=== PATIENT | female | born 1985 | race Caucasian/White ===

== ENCOUNTER 2017-03-08 09:27 | Emergency (ER) | payer SELFPAY ==
[2017-03-08 10:23] LABS: Basophils % (Auto) 0.8 % (0.0-1.8); Eosinophils % (Auto) 4.3 % (0.0-4.3); Hematocrit 33.1 % (30.3-42.9); Hemoglobin 10.2 gm/dl (10.1-14.3); Mean Corpuscular HGB Conc 31 % (30-34); Mean Corpuscular Hemoglobin 25 pg (28-32); Mean Corpuscular Volume 81 fl (79-97); Platelet Count 231 K/mm3 (140-440); White Blood Count 4.4 K/mm3 (4.5-11.0)
[2017-03-08 10:28] LABS: Alanine Aminotransferase 6 units/L (7-56); Albumin 3.8 g/dL (3.9-5); Albumin/Globulin Ratio 1.2 %; Alkaline Phosphatase 54 units/L (35-129); Anion Gap 16 mmol/L; BUN/Creatinine Ratio 18.33; Bilirubin,Total < 0.20 mg/dL (0.1-1.2); Blood Urea Nitrogen 11 mg/dL (7-17); Calcium 8.3 mg/dL (8.4-10.2); Carbon Dioxide 25 mmol/L (22-30); Chloride 105.9 mmol/L (98-107); Glucose 66 mg/dL (65-100); Lipase 47 units/L (13-60); Potassium 3.7 mmol/L (3.6-5.0); Sodium 143 mmol/L (137-145); Total Protein 6.9 g/dL (6.3-8.2)
--- NOTE | 2017-03-08 10:54 | Emergency Department Report ---
HPI - General Chief Complaint: Urogenital-Female Time Seen by Provider: 03/08/17 10:43 - HPI HPI: Room 4 The patient is a 31-year-old female presenting with a chief complaint of dysuria. The patient states since 02/25/2017 dysuria, hematuria and urinary frequency. Patient denies abdominal pain. Patient denies vaginal discharge. Patient denies nausea vomiting or fever. The patient states her cycle came on approximately 10 days too early Location: Genitourinary Duration: Constant since 02/25/2017 Quality: Pressure/tingling Severity: Mild Modifying factors: [see above] Context: [see above] Mode of transportation: Unknown ED Past Medical Hx - Past Medical History Previous Medical History?: Yes Hx Heart Attack/AMI: Yes Additional medical history: Lupus - Surgical History Past Surgical History?: No - Family History Family history: no significant - Social History Smoking Status: Never Smoker Substance Use Type: None (denies illicit drug use), Alcohol (occasional) - Medications Home Medications: Home Medications Medication Instructions Recorded Confirmed Last Taken Type Phenazopyridine [Pyridium] 200 mg PO TID #6 tab 03/08/17 Unknown Rx Sulfamethoxazole/Trimethoprim 1 each PO BID #14 tablet 03/08/17 Unknown Rx [Bactrim DS TAB] ED Review of Systems ROS: Stated complaint: LOWER BACK PAIN/FREQUENT URINATION Other details as noted in HPI Comment: All other systems reviewed and negative Constitutional: denies: chills, fever Eyes: denies: eye pain, eye discharge, vision change ENT: denies: ear pain, throat pain Respiratory: denies: cough, shortness of breath, wheezing Cardiovascular: denies: chest pain, palpitations Endocrine: no symptoms reported Gastrointestinal: denies: abdominal pain, nausea, vomiting Genitourinary: urgency, dysuria, frequency, hematuria, abnormal menses. denies : discharge Musculoskeletal: denies: back pain, joint swelling, arthralgia Skin: denies: rash, lesions Neurological: denies: headache, weakness, paresthesias Psychiatric: denies: anxiety, depression Hematological/Lymphatic: denies: easy bleeding, easy bruising Physical Exam - Physical Exam Vital Signs: Vital Signs 03/08/17 09:43 Temperature 98.8 F Pulse Rate 75 Respiratory 18 Rate Blood Pressure 141/88 O2 Sat by Pulse 100 Oximetry Physical Exam: GENERAL: The patient is well-developed well-nourished female lying on stretcher not appearing to be in acute distress. [] HEENT: Normocephalic. Atraumatic. Trachea midline NECK: Supple. No meningitic signs are noted. There is no adenopathy noted. CHEST/LUNGS: Clear to auscultation. There is no respiratory distress noted. HEART/CARDIOVASCULAR: Regular. There is no tachycardia. There is no gallop rub or murmur. ABDOMEN: Abdomen is soft, nontender. Patient has normal bowel sounds. There is no abdominal distention. SKIN: There is no rash. There is no edema. There is no diaphoresis. NEURO: The patient is awake, alert, and oriented. The patient is cooperative. The patient has normal speech MUSCULOSKELETAL: There is no CVA tenderness. There is no evidence of acute injury. ED Course Vital Signs 03/08/17 09:43 Temperature 98.8 F Pulse Rate 75 Respiratory 18 Rate Blood Pressure 141/88 O2 Sat by Pulse 100 Oximetry ED Medical Decision Making - Lab Data Result diagrams: 03/08/17 10:01 03/08/17 10:01 Laboratory Tests 03/08/17 03/08/17 03/08/17 10:01 10:01 Unknown WBC 4.4 L RBC 4.10 Hgb 10.2 Hct 33.1 MCV 81 MCH 25 L MCHC 31 RDW 15.0 Plt Count 231 Lymph % (Auto) 30.9 [place] % (Auto) 11.2 H Eos % (Auto) 4.3 Baso % (Auto) 0.8 Lymph # 1.3 Hyde # 0.5 Eos # 0.2 Baso # 0.0 Seg Neutrophils % 52.8 Seg Neutrophils # 2.3 Sodium 143 Potassium 3.7 Chloride 105.9 Carbon Dioxide 25 Anion Gap 16 BUN 11 Creatinine 0.6 L Estimated GFR > 60 BUN/Creatinine Ratio 18.33 Glucose 66 Calcium 8.3 L Total Bilirubin < 0.20 AST 11 ALT 6 L Alkaline Phosphatase 54 Total Protein 6.9 Albumin 3.8 L Albumin/Globulin Ratio 1.2 Lipase 47 Urine Color Yellow Urine Turbidity Clear Urine pH 7.0 Ur Specific [place] 1.016 Urine Protein <15 mg/dl Urine Glucose (UA) Neg Urine Ketones Neg Urine Blood Sm Urine Nitrite Neg Urine Bilirubin Neg Urine Urobilinogen 2.0 Ur Leukocyte Esterase Sm Urine WBC (Auto) 19.0 H Urine RBC (Auto) 8.0 U Epithel Cells (Auto) 1.0 Urine Bacteria (Auto) 1+ Hyaline Casts 1 Urine HCG, Qual Negative - Differential Diagnosis UTI Critical care attestation.: If time is entered above; I have spent that time in minutes in the direct care of this critically ill patient, excluding procedure time. ED Disposition Clinical Impression: UTI (urinary tract infection) Disposition: TO HOME OR SELFCARE Is pt being admited?: No Does the pt Need Aspirin: No Condition: Stable Instructions: Urinary Tract Infection in Women (ED), Phenazopyridine (By mouth) Additional Instructions: Return to the emergency department immediately should you develop worsening symptoms, fever, inability to tolerate food or liquid or any other concerns. Prescriptions: Phenazopyridine [Pyridium] 200 mg PO TID #6 tab Sulfamethoxazole/Trimethoprim [Bactrim DS TAB] 1 each PO BID #14 tablet Referrals: PRIMARY CARE, [Primary Care Provider] - 3-5 Days JERE BRICEÑO MD [Staff Physician] - 3-5 Days (Dr. Briceño is an PSYCH COORDINATOR. Please follow up with him if he do not already have a wireless manager) Time of Disposition: 12:03
[2017-03-08 11:19] LABS: Bacteria,Urine 1+ /HPF (Negative); Bilirubin,Urine NEG (Negative); Blood,Urine SM (Negative); Ketones,Urine NEG (Negative); Leukocyte Esterase,Urine SM (Negative); Nitrite,Urine NEG (Negative); Protein,Urine <15 mg/dL mg/dL (Negative)
[2017-03-08 12:04] VITALS: BP 138/90
== END 2017-03-08 12:33 | disposition home or self-care (01) ==
LOC: ED 09:27
DX: N39.0 Urinary tract infection, site not specified (principal); I50.9 Heart failure, unspecified
CPT/HCPCS: 36415; 80053; 81001; 81025; 83690; 85025; 99283

== ENCOUNTER 2017-06-08 22:56 | Emergency (ER) | payer SELFPAY | END 2017-06-09 04:30 | disposition left against medical advice (07) | LOC: ED 22:56 | DX: M54.9 Dorsalgia, unspecified (principal); Z53.21 Procedure and treatment not carried out due to patient leaving prior to being seen by health care provider ==

== ENCOUNTER 2017-06-09 11:53 | Emergency (ER) | payer SELFPAY ==
[2017-06-09 12:03] VITALS: BP 134/67
[2017-06-09 12:44] LABS: Bilirubin,Urine NEG (Negative); Blood,Urine NEG (Negative); Ketones,Urine NEG (Negative); Leukocyte Esterase,Urine NEG (Negative); Nitrite,Urine NEG (Negative); Urobilinogen,Urine < 2.0 mg/dL (<2.0)
--- NOTE | 2017-06-09 13:14 | Emergency Department Report ---
ED Back Pain/Injury HPI - General Chief Complaint: Back Pain/Injury Stated Complaint: BACK AND RIGHT LEG PAIN Source: patient Limitations: No Limitations - History of Present Illness Initial Comments: 31 y/o F with a pmhx of lupus and CO and currently on Hydroxycholoquine, Plavix , Plaquenil, and lipitor presents with low back pain (no trauma) that radiates to her crease of her right thigh. Pt states that she has also had some abdominal pressure/cramps, some frequency, and urgency. Pt states that the pain started about 1 week ago, she states that she is atheletic and states that she does squats that increase the pain. She denies any radiation of the pain down her leg, no bowel/bladder incontinces, no saddle anesthsia, no known trauma to the site. Pt reports to 7/10 in severity. Pt states that she recently had unrpotected sex with a partner who she is unsure if he had any STD at this time. pt states that she has noticed a foul odor of discharge and states that it is "fishy" in nature for the past 2 weeks she states that she has been googling and is concerned for an STD. She has a previous hx of yeast infection. Pt denies any recent surgeries, immbility, long car/plane rides, control, or hx of cancer. she denies any chest pain,SOB, calf pain, nausea, vomiting, or fever at this time. LMP: June 04, 2017. Pt states that she has been taking tylenol and ibuprofen for the pain. NKDA. BAE Complaint: back pain -: week(s) (1-2 weeks) Similar Symptoms Previously: No Place: home Radiation: right leg, other (to right thigh proximal) Severity: moderate Severity scale (0 -10): 5 Consistency: intermittent Improves With: none Worsens With: none Treatments Prior to Arrival: NSAIDS, acetaminophen - Related Data Home Medications Medication Instructions Recorded Confirmed Last Taken Hydrochlorothiazide 06/09/17 Unknown Lipitor 06/09/17 Unknown Plaquenil 06/09/17 Unknown Plavix 06/09/17 Unknown Previous Rx's Medication Instructions Recorded Last Taken Type Phenazopyridine [Pyridium] 200 mg PO TID #6 tab 03/08/17 Unknown Rx Sulfamethoxazole/Trimethoprim 1 each PO BID #14 tablet 03/08/17 Unknown Rx [Bactrim DS TAB] Allergies Allergy/AdvReac Type Severity Reaction Status Date / Time No Known Allergies Allergy Verified 06/09/17 11:58 ED Review of Systems ROS: Stated complaint: BACK AND RIGHT LEG PAIN Other details as noted in HPI Constitutional: denies: chills, fever Eyes: denies: eye pain, eye discharge, vision change ENT: denies: ear pain, throat pain Respiratory: denies: cough, shortness of breath, wheezing Cardiovascular: denies: chest pain, palpitations Gastrointestinal: denies: abdominal pain, nausea, diarrhea Genitourinary: urgency, frequency, discharge (with foul odor) Musculoskeletal: back pain Skin: denies: rash, lesions Neurological: denies: headache, weakness, paresthesias Psychiatric: denies: anxiety, depression ED Past Medical Hx - Past Medical History Hx Heart Attack/AMI: Yes (2012) Additional medical history: Lupus - Surgical History Past Surgical History?: No - Social History Smoking Status: Never Smoker Substance Use Type: Alcohol - Medications Home Medications: Home Medications Medication Instructions Recorded Confirmed Last Taken Type Phenazopyridine [Pyridium] 200 mg PO TID #6 tab 03/08/17 Unknown Rx Sulfamethoxazole/Trimethoprim 1 each PO BID #14 tablet 03/08/17 Unknown Rx [Bactrim DS TAB] Hydrochlorothiazide 06/09/17 Unknown History Lipitor 06/09/17 Unknown History Plaquenil 06/09/17 Unknown History Plavix 06/09/17 Unknown History ED Physical Exam - General Limitations: No Limitations General appearance: alert, in no apparent distress - Head Head exam: Present: atraumatic, normocephalic - Neck Neck exam: Present: normal inspection, full ROM - Respiratory Respiratory exam: Present: normal lung sounds bilaterally. Absent: respiratory distress - Cardiovascular Cardiovascular Exam: Present: regular rate, normal rhythm. Absent: systolic murmur, diastolic murmur, rubs, gallop - GI/Abdominal GI/Abdominal exam: Present: other (there is pain elcited with deep palpation of the bladder/uterus region) - Speculum exam: Present: vaginal discharge (there was white creamy discharge noted, there was no cervical motion tenderness or adenexal tenderness) Bi-manual exam: Present: other (no uterine tenderness or enlargement) - Extremities Exam Extremities exam: Present: normal inspection - Back Exam Back exam: Present: muscle spasm, paraspinal tenderness (there is some radiation to the right gluteal crease- appears consistent with muscles), other ( there was no spinal tenderness, there was lumbar paraspinal pain ttp, there was no redness, swelling, or bruising noted) - Neurological Exam Neurological exam: Present: alert, oriented X3, normal gait - Psychiatric Psychiatric exam: Present: normal affect, normal mood - Skin Skin exam: Present: warm, dry, intact, normal color. Absent: rash ED Course Vital Signs 06/09/17 11:58 Temperature 97.4 F L Pulse Rate 78 Blood Pressure 134/67 O2 Sat by Pulse 100 Oximetry ED Medical Decision Making - Medical Decision Making Case was discussed with Dr. Wilson and we suspect that the pain is likely secondary to the lupus. We have conducted Wet prep, UA, UPT, GC/chlamydia today. Pending the STD screening results all else was essentially unremarkable. Pt was advised to keep the appointment with her Lupus physician next week and update him on today's ER visit. She was also given referrals to OBGYN and PCP for further work-up on her vaginal odor and back/thigh pain. Pt told that we can conducted an abdominal/pelvic US with doppler to rul out any abdomina causes for the pain and R leg Doppler/US to rule out DVT. pt denied both and signed AMA, risks and benefits were explained to the patient. Pt was discharged in stable condition, alert and oriented, and in no resp distress. Vitals were stable. I have told her to try resting and applying warm compresses and see if this well help allevaite the pain as she has been on her feet ever since. I have told her that a muscle relaxant may be a good option if her symptoms continue for another week when she sees her power sweeper operator, up to the disgression of the rheumatogist given her current list of medications. Pt agrees with plan of care. Critical care attestation.: If time is entered above; I have spent that time in minutes in the direct care of this critically ill patient, excluding procedure time. ED Disposition Clinical Impression: Vaginal odor, Unprotected sex Low back pain Qualifiers: Chronicity: acute Back pain laterality: bilateral Sciatica presence: without sciatica Qualified Code(s): M54.5 - Low back pain Disposition: TO HOME OR SELFCARE Is pt being admited?: No Does the pt Need Aspirin: No Condition: Stable Instructions: Sexually Transmitted Diseases (ED), Safe Sex (ED) Additional Instructions: YOur STD results are currently pending. You have been given a referral to OBGYN if your presenting symptoms continue. Please follow-up with PCP within 1 week. Warm compresses to the back will help with the tension and pain. Please return to the ER immediately if your presenting symptoms acutely progress or worsen. Referrals: [facility] [Outside] - 3-5 Days [facility] [Outside] - 3-5 Days BARRY HECK MD [Staff Physician] - 3-5 Days BRENNAN ALAS MD [Staff Physician] - 3-5 Days MIMI GAGE MD [Staff Physician] - 3-5 Days PRIMARY CAREMD [Primary Care Provider] - 3-5 Days KAITLYNN FORD MD [Referring] - 3-5 Days Forms: Work/School Release Form(ED)
== END 2017-06-09 14:54 | disposition home or self-care (01) ==
LOC: ED 11:53
DX: N89.8 Other specified noninflammatory disorders of vagina (principal); M54.5 Low back pain; Z72.51 High risk heterosexual behavior
CPT/HCPCS: 99283